=== PATIENT | female | born 1980 | race Caucasian/White ===

== ENCOUNTER 2018-05-02 10:09 | Inpatient (IN) ==
--- NOTE | 2018-05-02 09:18 | Anesthesia Evaluation PreOp ---
Date of Encounter: 05/02/18 Time of Encounter: 11:18 - Past History Planned Operation: TAHBSO Cardiac History: Denies any Significant Hx Pulmonary History: Denies Any Significant HX PRISON PSYCHIATRIST History: Denies Any Significant HX Other Medical History: Other (obesity BMI=50.5) Anesthesia History: No Prior Anesthetic Complications, Past Anesthesia Test: Negative (04/29/2018) Alcohol Use: none Drug use: none Medications and Allergies Ibuprofen 800 mg PO BID PRN 05/02/18 [History] Allergy/AdvReac Type Severity Reaction Status Date / Time No Known Allergies Allergy Verified 05/02/18 10:49 - Meds/Allergy Pre-op Review Medications Reviewed: Yes Allergies Reviewed: Yes Beta Blockers on Current Med List: No Anesthesia Results - Labs Laboratory Tests 10/30/17 10/30/17 04/29/18 17:30 17:30 16:59 WBC 11.4 H Hgb 12.6 Hct 39.1 Plt Count 220 Sodium 139 Potassium 3.5 BUN 12 Creatinine 0.71 Serum , Qual 04/29/18 16:59 WBC Hgb Hct Plt Count Sodium Potassium BUN Creatinine Serum , Qual Negative - Imaging EKG: report reviewed (06/19/2015 SINUS RHYTHM) Additional studies: 03/22/2016 Echo Impressions: LVEF 60-65%. Normal LV chamber size, wall thickness and function. Normal left ventricular diastolic function. Normal right ventricular structure and function. Unable to estimate RVSP due to lack of TR jet. No significant valvular dysfunction. Anesthesia Exam O2 Sat Height 1.6 m Height 1.6 m Weight 129.274 kg Weight 129.274 kg O2 Sat by Pulse Oximetry 96 O2 Sat by Pulse Oximetry 96 Vital Signs Temp Pulse Resp BP Pulse Ox 98.0 F 93 18 114/73 96 05/02/18 10:31 05/02/18 10:31 05/02/18 10:31 05/02/18 10:31 05/02/18 10:31 Height: 5'3'' Weight: 285 lbs NPO (# of Hours): 8 Pain Scale: 0 Pain Scale Used: Numeric (1 - 10) - HEENT Pupil (Motor): EOMI Mallampati: II Teeth: Normal (chipped upper front tooth) Oral Opening: Greater than 3 - PRISON PSYCHIATRIST LOC: Oriented PRISON PSYCHIATRIST Motor: Normal RUE, Normal LUE, Normal RLE, Normal LLE, Normal Face PRISON PSYCHIATRIST Sensory: Normal: RUE, LUE, RLE, LLE, Face - Cardiac Rhythm: Regular Murmur: None - Pulmonary Breath Sounds: bilateral Clear Respiratory Effort: Symmetrical Anesthesia Assess/Plan ASA Score: 3 Level of consciousness: Cooperative, Oriented, Tranquil Anesthetic Plan: General Monitoring Plan: Standard Monitors Recovery Plan: PACU
[2018-05-02] MEDS: Ringers Solution, Lactated 1,000 ML IVC SCH ×3 (11:03→18:32)
[2018-05-02] MEDS ORDERED: CeFAZolin Syr 3,000MG/30 ML 3,000 MG/30 ML SYRINGE IVPB ONE (11:21)
[2018-05-02] MEDS ORDERED: *HR* HYDROmorphone (PF) 1 MG/ML SYRINGE IVP PRN (11:30)
[2018-05-02] MEDS ORDERED: *HR* OxyCODONE Immed Rel 5 MG TABLET PO PRN (11:30)
[2018-05-02] MEDS ORDERED: Scopolamine Patch 1.5 MG PATCH.TD72 TD ONE (11:31)
[2018-05-02] MEDS ORDERED: Acetaminophen IV 1,000 MG/100 ML INFUS..BTL IVPB ONE (11:31)
[2018-05-02] MEDS ORDERED: Scopolamine Patch 1.5 MG PATCH.TD72 ONE (11:43)
[2018-05-02] MEDS ORDERED: Acetaminophen IV 1,000 MG/100 ML INFUS..BTL ONE (11:43)
[2018-05-02] MEDS ORDERED: Ondansetron 4 MG/2 ML VIAL ONE (12:22)
[2018-05-02] MEDS ORDERED: Lidocaine -MPF 2% 2 ML VIAL ONE (12:22)
[2018-05-02] MEDS ORDERED: *HR* Rocuronium Bromide 50 MG/5 ML VIAL ONE (12:22)
[2018-05-02] MEDS ORDERED: *HR* FentaNYL (PF) 100 MCG/2 ML VIAL ONE (12:23)
[2018-05-02] MEDS ORDERED: *HR* Midazolam HCl 2 MG/2 ML VIAL ONE (12:23)
[2018-05-02] MEDS ORDERED: *HR* Propofol 200 MG/20 ML VIAL IVP ONE ×3 (12:23→15:07)
[2018-05-02] MEDS ORDERED: Lidocaine -MPF 4% 5 ML AMPUL ONE (12:26)
[2018-05-02] MEDS ORDERED: Dexamethasone 4 MG/ML VIAL ONE (12:26)
--- NOTE | 2018-05-02 12:45 | History & Physical Report ---
Date of Encounter: 05/02/18 Time of Encounter: 12:45 24 Hour HP Update - Instructions Instructions: If the History and Physical is less than 30 days old and was completed prior to A.M. admission and or procedure and has NOT been updated on calendar day of procedure please complete this update prior to performing procedure. - Update Patient reports changes in Medical Condition: No Changes in examination, assessment, or condition: No Changes in Medication: No Preop tests/diagnostics Reviewed: No Surgery Remains Indicated: Yes Consent for Planned Operative Procedure(s) Verified: Yes - Pre-Operative Checklist Preoperative Checklist Indicated: Yes Prophylactic Antibiotic Ordered: Yes Home Medications Include Beta Gifty: No Beta Gifty Taken Today (Day of Surgery): No Beta Gifty Taken Yesterday (Day Prior to Surgery): No Is VTE Prophylaxis Indicated?: Yes
[2018-05-02] MEDS ORDERED: *HR* Vasopressin 20 UNIT/ML VIAL ONE (13:53)
[2018-05-02] MEDS ORDERED: *HR* HYDROMORPHONE 2 MG/ML VIAL ONE (14:20)
[2018-05-02] MEDS ORDERED: Metoclopramide 10 MG/2 ML VIAL ONE (14:20)
[2018-05-02] MEDS ORDERED: *HR* Magnesium Sulfate 1 GM/2 ML VIAL ONE (14:20)
[2018-05-02] MEDS ORDERED: Neostigmine Methylsulfate 3 MG/3 ML SYRINGE ONE (14:49)
--- NOTE | 2018-05-02 16:22 | Anesthesia Evaluation Post Op ---
Date of Encounter: 05/02/18 Time of Encounter: 16:21 - Discharge PostOp Status: Transfer Patient to floor (Patient's vital signs have been reviewed. Patient is stable postoperatively and has adequately recovered from anesthesia. Patient is determined to have stable airway patency and respiratory function including respiratory rate and oxygen saturation. Patient has a stable heart rate, blood pressure and adequate hydration. Patients mental status is acceptable. Patients temperature is appropriate. Pain and nausea are adequately controlled.)
--- NOTE | 2018-05-02 16:30 | OB/GYN Procedure Note ---
OB-TRUCK DRIVER RUBBISH COLLECTOR: Procedure - Diagnosis Date of procedure: 05/02/18 Pre-op diagnosis: Pelvic pain, AUB, Dypareunia, Fibroids Post-op diagnosis: same - Procedure Procedure: JACK, b/l salpingectomy Surgeon: Yandy Trivedi Was there an seismic survey assistant present: Yes Jewel Setter: Kiesha Morrison Anesthesia Type: General Estimated blood loss (cc): 400 Fluids: crystalloid Procedure Complications: none Specimens collected: fibroid uterus, cervix and tubes Disposition: floor Findings: Large fibroid uterus, surgically ligated tubes, normal ovaries b/l Narrative: The patient was prepped and draped in the usual sterile fashion. An incision was made into the abdomen down through the subcutaneous tissue, muscular fascia and peritoneum. Once inside the abdominal cavity, a self retaining retractor was placed to expose the pelvic cavity with lap sponges. The fibroid uterus was then identified and grasped on the fundus with a double-toothed tenaculum with upward traction. The round ligaments on either side were individually dissected and ligated with the Ligasure device. This allowed me to create a bladder flap by both blunt and sharp dissection. The fallopian tube and ovarian ligament were ligated and divided with the Ligasure. I skeletonized the uterine vessels on either side and carefully dissected the bladder flap further anteriorly. Samir clamps were then placed at each isthmic portion of the cervical body junction where the uterine arteries adjoined the uterus. These were clamped, ligated and divided using #0 Vicryl suture. The remainder of the uterus was then removed by the [id number] technique using #0 Vicryl on all major pedicles. With removal of the uterus, the vaginal cuff was closed in the usual manner. Hemostasis was then inspected and secured throughout the entire area. The ovaries were left in situ. The lap sponges were then removed and the self- retaining retractor was removed. The patient tolerated the operation nicely. There were no complications associated with this surgical procedure. The sponge count was correct times 2 at this time. The Roa catheter was inspected and clear urine was noted. Having removed all instruments and packs, we then began closure of the abdomen. The fascia was closed with #0 PDS in a running continuous manner and the subcutaneous tissue was also closed with #3-0 Vicryl in interrupted manner. The skin was closed with #4-0 vicryl. The patient tolerated the operation nicely and was then taken to the Recovery Room in good condition.
[2018-05-02] MEDS ORDERED: Ondansetron 4 MG/2 ML VIAL IVP PRN (16:38)
[2018-05-02] MEDS ORDERED: Naloxone 0.4 MG/ML INJ IVP PRN (16:38)
[2018-05-02] MEDS: *HR* OxyCODONE/APAP 5/325 TABLET PO PRN (19:40)
[2018-05-03] MEDS: *HR* OxyCODONE/APAP 5/325 TABLET PO PRN (02:50)
[2018-05-03] MEDS: Ringers Solution, Lactated 1,000 ML IVC SCH (02:51)
[2018-05-03 07:01] LABS: Basophils % 0.2 %; Hematocrit 35.7 % (35.3-44.9); Hemoglobin 11.9 g/dL (11.5-15.4); Immature Granulocytes % 0.9 % (0-4); Lymphocytes # 1.4 K/mcL (0.6-4.6); Lymphocytes % 8.3 %; Mean Corpuscular HGB Conc 33.3 g/dL (31.6-35.5); Mean Corpuscular Hemoglobin 27.4 pg (28.0-33.3); Mean Corpuscular Volume 82.1 fL (83.0-100.0); Mean Platelet Volume 10.9 fL (9.4-12.4); Monocytes # 1.2 K/mcL (0.0-1.3); Monocytes % 7.2 %; Neutrophils # 13.7 K/mcL (1.6-8.9); Platelet Count 276 K/mcL (140-400); Red Blood Count 4.35 M/mcL (3.82-4.97); Segmented Neutrophils % 83.4 %
[2018-05-03] MEDS: Ibuprofen 600 MG TABLET PO PRN ×2 (08:06→15:18)
[2018-05-03 15:52] VITALS: BP 121/73
--- NOTE | 2018-05-03 17:16 | Discharge Summary ---
Date of Encounter: 05/03/18 Time of Encounter: 17:14 - Discharge Diagnosis (1) H/O hysterectomy for benign disease Priority: Primary Status: Acute Comments: 37 y/o s/p JACK for fibroids, POD#1, patient is doing well, ambulating, tolerating PO, good urine amount, pain is under control, ok for discharge - Discharge Medications Prescriptions: Ibuprofen [Motrin] 600 mg PO Q6HR PRN #60 tab PRN Reason: Pain OxyCODONE/APAP 5/325 [Percocet 5/325 MG] 1 each PO Q6HR PRN 7 Days #28 tablet PRN Reason: Pain Home Medications: Ibuprofen 800 mg PO BID PRN 05/02/18 [History] Ibuprofen [Motrin] 600 mg PO Q6HR PRN #60 tab 05/03/18 [Rx] OxyCODONE/APAP 5/325 [Percocet 5/325 MG] 1 each PO Q6HR PRN 7 Days #28 tablet 05/03/18 [Rx] Allergies/Adverse Reactions: Allergy/AdvReac Type Severity Reaction Status Date / Time No Known Allergies Allergy Verified 05/02/18 10:49 Data Procedures and tests throughout hospitalization: Laboratory Tests 05/03/18 06:28 WBC 16.5 H RBC 4.35 Hgb 11.9 Hct 35.7 MCV 82.1 L MCH 27.4 L MCHC 33.3 RDW 14.0 Plt Count 276 MPV 10.9 Immature Gran % 0.9 Seg Neutrophils % 83.4 Lymphocytes % 8.3 Monocytes % 7.2 Eosinophils % 0.0 Basophils % 0.2 Neutrophils # 13.7 H Lymphocytes # 1.4 Monocytes # 1.2 Eosinophils # 0.0 Basophils # 0.0 Labs on day of discharge: Labs from last 24 hours 05/03/18 06:28 WBC 16.5 H RBC 4.35 Hgb 11.9 Hct 35.7 MCV 82.1 L MCH 27.4 L MCHC 33.3 RDW 14.0 Plt Count 276 MPV 10.9 Immature Gran % 0.9 Seg Neutrophils % 83.4 Lymphocytes % 8.3 Monocytes % 7.2 Eosinophils % 0.0 Basophils % 0.2 Neutrophils # 13.7 H Lymphocytes # 1.4 Monocytes # 1.2 Eosinophils # 0.0 Basophils # 0.0 Date of admission: 05/02/18 16:13 Primary care physician: eDjon Oreilly MD - Patient Status Disposition: Home, Self-Care Condition: Good Functional capacity at discharge: independent ambulation Overall status at discharge: patient is progressing back to baseline - Discharge Instructions Follow Up With: Dejon Oreilly MD [Primary Care Provider] - Additional Instructions: There are many types of gynecologic surgery. Below, you will find groups of instructions related to caring for yourself after your procedure. there may be instructions that do not apply to you depending on the procedure that you had. Before you go home, your nurse will explain these instructions and let you know any special instructions that you may have. MEDICATIONS: -Continue taking your home medications as prescribed by your doctor prior to surgery. You will be notified of any changes in home medications before leaving the hospital. -A prescription for pain medication may be given to you. Take it as directed. It is important to control your pain during recovery. -Do not stop taking antibiotics if they were prescribed for you. Take them until they are all gone. Antibiotics are sometimes used to prevent infection after surgery. BOWEL MOVEMENTS: -You may not have a bowel movement for a few days after surgery. The first one may be difficult to pass. Do not strain in order to go, and allow yourself plenty of time when going for the first time following your surgery. -To help soften your stool, eat a diet high in fiber. This includes foods such as cereals, whole grain breads and vegetables. You can also take a fiber supplement or stool softeners, which your provider may prescribe for you. DIET: -Your appetite may be decreased following surgery. You will be eating regular food before you are discharged from the hospital. Start out with small amounts of food and increase your meals as you are able to tolerate them without feeling nauseated. -Eat healthy foods to help you heal more quickly and increase your energy. Avoid foods that cause gas, as this will make you feel uncomfortable. -Drink 6-8 glasses of water each day. SMOKING: -Smoking increases your chances of post-surgical complications. It is never too late to quit. Ask your nurse or provider for information to help you quit smoking. ACTIVITY: -Restrict yourself to light activity and increase your activity level slowly, resting frequently. -Be aware your pain medication may cause drowsiness. -It usually takes 4-8 weeks for the body to heal. -You may walk slowly. Limit stair climbing. Do not exercise until the provider tells you it is safe to do so. -No douching, tampons or sex for 6 weeks. This will allow time for healing. You can no longer get after having a hysterectomy but will still need to protect yourself from sexually transmitted diseases. -Lift nothing heavier than 10-15 pounds for 2 weeks. -You can drive in about 2 weeks, unless otherwise instructed by your provider. -You can expect to return to work or school and other normal activities in about 6 weeks or as directed by your provider. -When you get home, you may shower normally. If you have an incision, wash the area with soap and water and dry thoroughly after showering. You may have steri-strips (thin strips of tape used to help hold the incision together while it heals). If these are present, do not remove them. Keep the area of your incision clean and dry. STRESS AND MOOD -A hysterectomy may change the way that you view yourself. These are normal feelings. Talk to your family and health care provider about these feelings. If you feel depressed, seek counseling or talk to your provider about treatment options. It is important in the healing process to have a healthy mind. WHEN TO CALL THE DOCTOR: -If your stitches are swollen, red or have drainage coming from them or if you notice them coming apart. It is normal for your incision to feel numb up to a year. -If you are having chills, fever or a reaction to your medicine. -If your incision is bleeding or you have increased pain in your incision. -If within an hour you have soaked a sanitary pad with vaginal bleeding. -If you are unable to urinate or it has been 4-6 hours since you have urinated. Also, if you have burning with urination or feel like you cant completely empty your bladder; call your provider for further instructions. -If you have a smelly discharge coming from your incision or vagina. -If you have any questions about your surgery or medications. If you have difficulty breathing, chest pain, uncontrolled bleeding or any other emergency, call 911 or report to the nearest emergency department immediately. Hospital Course CONTENT PRODUCER Time Attestation: Total time spent providing and/or coordinating discharge services: Exam - Constitutional Vitals: Temp Pulse Resp BP Pulse Ox 97.9 F 83 16 121/73 95 05/03/18 15:52 05/03/18 15:52 05/03/18 15:52 05/03/18 15:52 05/03/18 13:13 General appearance IM: A&O X 3 - Respiratory Respiratory exam: Present: CTAB - Cardiovascular Cardiovascular exam IM: Present: RRR - GI/Abdominal GI/Abdominal exam IM: normal bowel sounds Incision: intact - VTE Documentation of Mechanical Device: Intermittent pneumatic compression device
== END 2018-05-03 18:00 | disposition home or self-care (01) | DRG 742 ==
LOC: SAMDAY 10:09 → 1NENUOBS 16:13
PROVIDERS: ADMIT Student in an Organized Health Care Education/Training Program; ATTEND Student in an Organized Health Care Education/Training Program

== ENCOUNTER 2020-05-13 12:49 | Observation (INO) ==
[2020-05-13] MEDS ORDERED: Isovue-370 500 ML BOTTLE IVP ONE (13:17)
[2020-05-13 13:56] LABS: Hematocrit 43.7 % (35.3-44.9); Hemoglobin 14.5 g/dL (11.5-15.4); Mean Corpuscular HGB Conc 33.2 g/dL (31.6-35.5); Mean Corpuscular Hemoglobin 29.2 pg (28.0-33.3); Mean Corpuscular Volume 87.9 fL (83.0-100.0); Mean Platelet Volume 11.3 fL (9.4-12.4); Platelet Count 240 K/mcL (140-400); Red Blood Count 4.97 M/mcL (3.82-4.97); Red Cell Distribution Width 12.7 % (11.5-14.5); White Blood Count 10.8 K/mcL (4.3-11.1)
[2020-05-13 14:29] LABS: BUN/Creatinine Ratio 20 (6-26); Blood Urea Nitrogen 12 mg/dL (6-20); Calcium 9.6 mg/dL (8.6-10.3); Carbon Dioxide 23 mEq/L (23-29); Chloride 104 mEq/L (98-107); Glucose 93 mg/dL (70-105); Osmolality,Calculated 287 (280-300); Potassium 3.4 mEq/L (3.5-5.1); Sodium 139 mEq/L (136-145); Troponin I < 0.03 ng/mL (< 0.04); eGFR For African Americans > 60 (> 60); eGFR For Non-African Americans > 60 (> 60)
[2020-05-13] MEDS ORDERED: Perflutren Lipid Microsphere 1.3 ML in 0.9 % Sodium Chloride 8.7 ML IVP PRN (15:52)
[2020-05-13] MEDS ORDERED: Aspirin Enteric Coated 325 MG Tablet PO STA (15:53)
[2020-05-13] MEDS ORDERED: Naloxone 0.4 MG/ML INJ IVP PRN (15:58)
[2020-05-13] MEDS ORDERED: Ondansetron 4 MG/2 ML VIAL IVP PRN (15:58)
[2020-05-13] MEDS ORDERED: MethylPREDNISolone 40 MG/ML VIAL IVP STA (16:14)
[2020-05-13 16:23] LABS: Chol/HDL Ratio 4.5 (0-4.9); Cholesterol 211 mg/dL (< 200); HDL Cholesterol 47 mg/dL (40-59); LDL Cholesterol,Calculated 110 mg/dL (< 100); Triglycerides 269 mg/dL (< 150)
[2020-05-13 16:38] LABS: Thyroid Stimulating Hormone 1.537 mcIU/mL (0.340-5.600)
[2020-05-13] MEDS: Acetaminophen 325 MG TABLET PO PRN (18:51)
[2020-05-13 19:11] LABS: Bilirubin,Urine Negative (Negative); Blood,Urine Negative (Negative); Clarity,Urine Clear (Clear); Color,Urine Colorless (Yellow); Glucose,Urine (UA) Normal (Normal); Ketones,Urine Negative (Negative); Leukocyte Esterase,Urine Negative (Negative); Nitrite,Urine Negative (Negative); PH,Urine 6.5 pH Units (5.0-8.0); Protein,Urine Negative (Neg-Trace); Specific Gravity,Urine 1.023 (1.010-1.025); Urobilinogen,Urine Normal (Normal)
[2020-05-13 22:38] LABS: Potassium 3.8 mEq/L (3.5-5.1)
[2020-05-13 22:40] LABS: Troponin I < 0.03 ng/mL (< 0.04)
[2020-05-14 01:46] LABS: Hematocrit 42.6 % (35.3-44.9); Hemoglobin 14.3 g/dL (11.5-15.4); Mean Corpuscular HGB Conc 33.6 g/dL (31.6-35.5); Mean Corpuscular Hemoglobin 29.5 pg (28.0-33.3); Mean Corpuscular Volume 87.8 fL (83.0-100.0); Mean Platelet Volume 10.9 fL (9.4-12.4); Platelet Count 244 K/mcL (140-400); Red Blood Count 4.85 M/mcL (3.82-4.97); Red Cell Distribution Width 12.6 % (11.5-14.5); White Blood Count 13.3 K/mcL (4.3-11.1)
[2020-05-14 01:54] LABS: INR 1.1; Prothrombin Time 12.4 Seconds (9.4-12.1)
[2020-05-14 02:06] LABS: BUN/Creatinine Ratio 16 (6-26); Blood Urea Nitrogen 10 mg/dL (6-20); Calcium 9.4 mg/dL (8.6-10.3); Carbon Dioxide 18 mEq/L (23-29); Chloride 109 mEq/L (98-107); Glucose 203 mg/dL (70-105); Osmolality,Calculated 287 (280-300); Sodium 136 mEq/L (136-145); eGFR For African Americans > 60 (> 60); eGFR For Non-African Americans > 60 (> 60)
[2020-05-14 05:23] LABS: Estimated Average Glucose 103 mg/dl; Hemoglobin A1C 5.2 %
[2020-05-14] MEDS ORDERED: Aspirin Enteric Coated 81 MG Tablet PO SCH (09:00)
[2020-05-14] MEDS: Acetaminophen 325 MG TABLET PO PRN (09:15)
[2020-05-14 11:16] VITALS: BP 111/71
== END 2020-05-14 13:22 | disposition home or self-care (01) ==
LOC: EMEROOARM 12:49 → 3BNU 12:49 → SUATTDRO 15:23
PROVIDERS: ADMIT Internal Medicine; ATTEND Internal Medicine